=== PATIENT | male | born 1980 | race Caucasian/White ===

== ENCOUNTER 2019-05-31 15:58 | Emergency (ER) | payer OTHER ==
[~2019-05-31] VITALS: Ht 180.3 cm; Wt 90.9 kg
[2019-05-31 15:58] VITALS: BP 142/87
== END 2019-05-31 16:59 | disposition home or self-care (01) ==
LOC: M ED 15:58
DX: K21.9 Gastro-esophageal reflux disease without esophagitis (principal); F17.210 Nicotine dependence, cigarettes, uncomplicated